=== PATIENT | male | born 1970 | race Caucasian/White ===

== ENCOUNTER 2018-08-12 09:18 | Emergency (ER) | payer OTHER ==
--- NOTE | 2018-08-12 09:31 | PDOC ---
History of Present Illness - General Chief Complaint: Pain Stated Complaint: ABD PAIN Time Seen by Provider: 08/12/18 09:19 History Source: Patient Exam Limitations: No Limitations - History of Present Illness Initial Comments: 48 yo M no significant PMH presents with periumbilical abd pain. He states that he has a hernia that developed after lifting a heavy bag in the past. Previously he was always able to reduce it himself, but today he cannot. He walked for a very long period of time yesterday and noticed progressive discomfort. He attempted to sleep it off last night, but woke up in continued pain today. No vomiting. He has not yet had a BM today, but he was able to pass gas. He has not been evaluated by a surgeon for the hernia in the past. Past History - Past Medical History Allergies/Adverse Reactions: Allergies Allergy/AdvReac Type Severity Reaction Status Date / Time No Known Allergies Allergy Verified 08/12/18 09:19 Home Medications: Ambulatory Orders Bupropion HCl [Wellbutrin Xl -] 150 mg PO DAILY 08/12/18 COPD: No GI Disorders: Yes (HERNIA) Psychiatric Problems: Yes (DEPRESSION, ANXIETY) - Suicide/Smoking/Psychosocial Hx Smoking History: Current every day smoker Have you smoked in the past 12 months: Yes Number of Cigarettes Smoked Daily: 5 Information on smoking cessation initiated: Yes 'Breaking Loose' booklet given: 08/12/18 Hx Alcohol Use: (occasional) Review of Systems - Review of Systems Able to Perform ROS?: Yes Comments:: GENERAL/CONSTITUTIONAL: No fever or chills. No weakness. HEAD, EYES, EARS, NOSE AND THROAT: No change in vision. No ear pain or discharge. No sore throat. CARDIOVASCULAR: No chest pain or shortness of breath. RESPIRATORY: No cough, wheezing, or hemoptysis. GASTROINTESTINAL: No nausea, vomiting, diarrhea or constipation. GENITOURINARY: No dysuria, frequency, or change in urination. MUSCULOSKELETAL: No joint or muscle swelling or pain. No neck or back pain. SKIN: No rash NEUROLOGIC: No headache, vertigo, loss of consciousness, or change in strength/ sensation. ENDOCRINE: No increased thirst. No abnormal weight change. HEMATOLOGIC/LYMPHATIC: No anemia, easy bleeding, or history of blood clots. ALLERGIC/IMMUNOLOGIC: No hives or skin allergy. *Physical Exam - Vital Signs Last Vital Signs Temp Pulse Resp BP Pulse Ox 97.6 F 98 H 18 106/76 97 08/12/18 09:18 08/12/18 09:18 08/12/18 09:18 08/12/18 09:18 08/12/18 09:18 - Physical Exam Comments: GENERAL: Awake, alert, and fully oriented, in no acute distress HEAD: No signs of trauma EYES: PERRLA, EOMI, sclera anicteric, conjunctiva clear ENT: Auricles normal inspection, hearing grossly normal, nares patent, oropharynx clear without exudates. Moist mucosa NECK: Normal ROM, supple, no lymphadenopathy, JVD, or masses LUNGS: Breath sounds equal, clear to auscultation bilaterally. No wheezes, and no crackles HEART: Regular rate and rhythm, normal S1 and S2, no murmurs, rubs or gallops ABDOMEN: Soft, normoactive bowel sounds. +Tenderness just superior to the umbilicus with a small palpable mass, not easily reducible due to pain. EXTREMITIES: Normal range of motion, no edema. No clubbing or cyanosis. No cords, erythema, or tenderness NEUROLOGICAL: Cranial nerves II through XII grossly intact. Normal speech, normal gait SKIN: Warm, Dry, normal turgor, no rashes or lesions noted. ED Treatment Course - LABORATORY CBC & Chemistry Diagram: 08/12/18 09:38 08/12/18 09:38 Medical Decision Making - Medical Decision Making 08/12/18 09:30 Based on history and exam, suspect this is likely a fat-containing hernia. He does not have any signs of obstruction, and it is relatively small. Will obtain CT to further evaluate as he has had pain since yesterday. 08/12/18 12:15 CT results reviewed with patient- fat-containing ventral hernia. Recommended outpatient surgery follow-up to have it repaired to prevent any complications. Unable to reduce it in the ED, it is firm, likely as a result of having been protruding since yesterday. Will give rx for pain control. *DC/Admit/Observation/Transfer Diagnosis at time of Disposition: Ventral hernia Qualifiers: Obstruction and gangrene presence: without obstruction or gangrene Qualified Code(s): K43.9 - Ventral hernia without obstruction or gangrene - Discharge Dispostion Disposition: HOME Condition at time of disposition: Stable Decision to Admit order: No - Referrals Referrals: Sunny Oneal MD [Staff Physician] - - Patient Instructions Printed Discharge Instructions: DI for Ventral Hernia - Post Discharge Activity
[2018-08-12] MEDS ORDERED: SODIUM CHLORIDE 1,000 ML IV STA (09:32)
[2018-08-12] MEDS ORDERED: ACETAMINOPHEN 1000 MG/100 ML VIAL (NON FORMULARY) IVPB ONE (09:32)
[2018-08-12] MEDS ORDERED: ACETAMINOPHEN INJECTION 100 ML IVPB ONE (09:42)
[2018-08-12 09:49] LABS: BASO % 0.6 % (0-2.0); EOS % 3.3 % (0-4.5); HEMATOCRIT 42.5 % (35.4-49); HEMOGLOBIN 14.2 GM/dl (11.7-16.9); MCHC 33.5 g/dl (32.0-35.9); MEAN CELL VOLUME 101.5 fl (80-96); MEAN PLT VOLUME 7.3 fl (7.5-11.1); MONO % 4.7 % (3.8-10.2); NEUT % 74.4 % (42.8-82.8); PLATELET COUNT 200 K/MM3 (134-434); RBC 4.19 M/mm3 (4.00-5.60); WHITE BLOOD COUNT 4.6 K/mm3 (4.0-10.8)
[2018-08-12 09:59] VITALS: BP 106/76; PULSE 98; TEMP 97.6; BMI 25.1
[2018-08-12 10:07] LABS: ALBUMIN 4.1 g/dl (3.5-5.0); ALK PHOS 71 U/L (32-92); ANION GAP 10 MMOL/L (8-16); BLOOD UREA NITROGEN 15 mg/dl (7-18); CALCIUM 9.2 mg/dl (8.4-10.2); CHLORIDE 102 mmol/L (98-107); CO2 25 mmol/L (22-28); CREATININE 0.9 mg/dl (0.6-1.3); GLUCOSE,RANDOM 227 mg/dl (74-106); SGOT/AST 21 U/L (10-42); SGPT/ALT 20 U/L (10-40); SODIUM 137 mmol/L (136-145); TOT PROT 6.6 g/dl (6.4-8.3)
== END 2018-08-12 12:40 | disposition home or self-care (01) ==
LOC: FER 09:18
PROC: 3E033NZ Introduction of Analgesics, Hypnotics, Sedatives into Peripheral Vein, Percutaneous Approach (ICD-10-PCS; principal; 2018-08-12)
PROC: 3E0337Z Introduction of Electrolytic and Water Balance Substance into Peripheral Vein, Percutaneous Approach (ICD-10-PCS; 2018-08-12)
DX: K43.9 Ventral hernia without obstruction or gangrene (principal); F17.210 Nicotine dependence, cigarettes, uncomplicated; F41.8 Other specified anxiety disorders
CPT/HCPCS: 36415; 74177-TC; 80053; 83605; 85025; 99285-25; J0131; J7030

== ENCOUNTER → 2018-08-15 | Day surgery (SDC) | payer OTHER ==
[2018-08-14 10:14] VITALS: BMI 25.1
[~2018-08-15] MED LIST: ACETAMINOPHEN INJECTION 100 ML IVPB ONE; BUPIVACAINE HCL/PF 0.5% (5MG/ML) 10 ML VIAL ONE; DEXAMETHASONE SOD PHOSPHATE 4 MG/1 ML VIAL ONE; KETOROLAC TROMETHAMINE 30 MG/1 ML VIAL ONE; LACTATED RINGERS SOLUTION 1,000 ML IV SCH; LIDOCAINE HCL 1%, 10 MG/ML (20ML VIAL) ONE; LIDOCAINE HCL/PF 2% SDV 5ML VIAL ONE; MIDAZOLAM HCL 2 MG/2 ML SINGLE DOSE VIAL ONE; ONDANSETRON 4 MG/2 ML VIAL IVPUSH PRN; ONDANSETRON 4 MG/2 ML VIAL ONE; PROPOFOL 20 ML ONE; ROCURONIUM BROMIDE 50 MG/5 ML VIAL ONE; SODIUM CHLORIDE 0.9% P/F 10 ML VIAL IJ ONE; SUCCINYLCHOLINE CHLORIDE 200 MG/10 ML VIAL ONE; ceFAZolin SODIUM 1 GM VIAL ONE; oxyCODONE HCL 5 MG TABLET ONE; oxyCODONE HCL 5 MG TABLET PO PRN
--- NOTE | 2018-08-15 07:23 | HP ---
History & Physical Update - History History: No Change - Physical Physical: No Change - Assessment Assessment: No Change - Plan Plan: No Change
--- NOTE | 2018-08-15 09:25 | OP ---
Operative Note - Note: Operative Date: 08/15/18 Pre-Operative Diagnosis: Incarcerated epigastric hernia Operation: Open epigastric hernia repair with mesh Post-Operative Diagnosis: Same as Pre-op Surgeon: Dom Rosenberg Nondestructive Tester: Adam Beltran Anesthesiologist/INSTALL AND REPAIR TECHNICIAN: Jasper Ledesma Anesthesia: General Estimated Blood Loss (mls): 5 Fluid Volume Replaced (mls): 750 Operative Report Dictated: Yes
--- NOTE | 2018-08-15 09:26 | SURG ---
Surgery Laryngologist Note Laryngologist: Adam Beltran PA-C Date of Service: 08/15/18 Diagnosis: Incarcerated ventral hernia Procedure: Open ventral hernia repair I was present for the entirety of the operative procedure. For further detail, please refer to operative report.
--- NOTE | 2018-08-15 10:56 | OP ---
DATE OF OPERATION: 08/15/2018 PREOPERATIVE DIAGNOSIS: Ventral hernia with incarcerated omentum. POSTOPERATIVE DIAGNOSIS: Ventral hernia with incarcerated omentum. PROCEDURE PERFORMED: Repair of ventral hernia with mesh. SURGEON: Dom Rosenberg M.D. FORM SETTER HELPER: ANESTHESIA: Local, followed by general. INDICATIONS: The patient was admitted with abdominal pain and an incarcerated ventral hernia. DESCRIPTION OF PROCEDURE: The patient was brought to the operating room. Intravenous antibiotics were given. Local with Marcaine was injected and a vertical incision was made. Dissection was done to free the incarcerated omentum from the fascia by opening a little bit of the fascia. The hernia sac was resected. Using composite mesh, 0 Prolene and tacker, the mesh was attached to the defect. Local with Marcaine was also injected at the beginning of the case. The fascia was closed over it. The subcutaneous tissue The patient went to Recovery in stable condition. DOM ROSENBERG M.D. /[id number]
[2018-08-15 15:14] VITALS: BP 116/72; PULSE 61; TEMP 97.4
--- NOTE | 2018-08-16 14:55 | PATH ---
Surgical Pathology Report Patient Name: ROLY OROURKE [facility]. Rec. #: [id number] /Age/Gender: 1970 (Age: 48) / M Account: [id number] Location: [facility] Taken: 08/15/2018 Received: 08/15/2018 Reported: 08/16/2018 Physicians: Dom Rosenberg M.D. Specimen(s) Received VENTRAL HERNIA SAC Clinical History Incarcerated ventral hernia Final Diagnosis VENTRAL HERNIA SAC, REPAIR: MESOTHELIAL LINED FIBROADIPOSE TISSUE CONSISTENT WITH HERNIA SAC. Electronically Signed Karla Bergman M.D. Gross Description Received in formalin labeled "ventral hernia sac," is a 3.7 x 2.8 x 2.0 cm portion of stout cole fibromembranous tissue with attached fat, consistent with a hernia sac. A admitting representative section is submitted in one cassette. /08/15/2018 saudi08/15/2018
== END | disposition home or self-care (01) ==
LOC: FASU 06:17
PROVIDERS: ATTEND Surgery Vascular Surgery
PROC: 0WUF0JZ Supplement Abdominal Wall with Synthetic Substitute, Open Approach (ICD-10-PCS; principal; 2018-08-15 08:22)
DX: K43.6 Other and unspecified ventral hernia with obstruction, without gangrene (principal)
CPT/HCPCS: 88302-TC; 94760; J0131